=== PATIENT | male | born 1985 | race Caucasian/White ===

== ENCOUNTER 2017-08-08 19:50 | Inpatient (IN) | payer MEDICAID ==
[~2017-08-08] VITALS: Ht 170.2 cm; Wt 77.6 kg
[2017-08-08 19:55] VITALS: BP 147/114
[2017-08-08] MEDS ORDERED: BEN50 PO (20:00)
[2017-08-08] MEDS ORDERED: RANI150T15 PO (20:00)
--- NOTE | 2017-08-08 20:32 | NUR ---
PT TAKEN TO BED 8
--- NOTE | 2017-08-08 20:36 | NUR ---
PATIENT IS A 32 Y/O MALE WHO PRESENTS TO THE ED C/O ABD PAIN. PT STATES, "I WAS REFERRED FROM URGENT CARE TO COME TO ER BECAUSE THEY SAID I MIGHT HAVE APPENDICITIS." PT REPORTS 8/10 THROBBING LEFT UPPER QUADRANT ABD PAIN. PT DENIES CP, SOB, N/B/D. PT AAOX4, RR EVEN/UNLABORED. PT REPOSITIONED FOR COMFORT, BED IN LOWEST POSITION. ER MD DR. BOONE NOTIFIED. WILL CONTINUE TO MONITOR.
[2017-08-08] MEDS ORDERED: NACL 0.9% 1,000 ML IV ONE (21:07)
[2017-08-08] MEDS ORDERED: MORPHINE SULFATE 4 MG/ML SYR IVP ONE (21:10)
[2017-08-08] MEDS ORDERED: ONDANSETRON 4 MG/2 ML VIAL IVP ONE (21:10)
[2017-08-08 21:44] LABS: BASOPHILS # (AUTO) 0.3 K/uL (0.00-0.22); EOSINOPHILS # (AUTO) 0.1 K/uL (0-0.4); HEMATOCRIT 44.9 % (36-52); LYMPHOCYTES # (AUTO) 0.8 K/uL (2.0-11.5); MEAN CORPUSCULAR HEMOGLOBIN 31 pg (27-31); MEAN CORPUSCULAR HGB CONC 33 g/dL (33-37); MEAN CORPUSCULAR VOLUME 93 fL (80-94); MONOCYTES # (AUTO) 0.8 K/uL (0.8-1.0); NEUTROPHILS # (AUTO) 3.6 K/uL (1.8-7.7); PLATELET COUNT (AUTO) 160 K/uL (140-450); RED BLOOD CELL COUNT(AUTO) 4.82 MIL/uL (4.20-6.10); RED CELL DISTRIBUTION WIDTH 13.2 % (11.6-13.7); WHITE BLOOD COUNT (AUTO) 5.6 K/uL (4.8-10.8)
[2017-08-08 21:50] LABS: BARBITURATE, URINE NEG. ng/ml (NEG <=200); BENZODIAZEPINE, URINE NEG. ng/mL (NEG <=200); CANNABINOID, URINE NEG. ng/mL (NEG <=50); COCAINE, URINE NEG. ng/mL (NEG <=300); OPIATE, URINE NEG. ng/mL (NEG <=2000); PHENCYCLIDINE SCREEN,URINE NEG. ng/mL (NEG <=25)
[2017-08-08 21:51] LABS: ANION GAP 10.3 (8-16); CARBON DIOXIDE 32.3 mmol/L (21-32); CREATININE 1.1 mg/dL (0.7-1.3); POTASSIUM 3.6 mmol/L (3.5-5.1)
[2017-08-08 21:57] LABS: ALBUMIN 3.8 g/dL (3.4-5.0); TOTAL BILIRUBIN 0.7 mg/dL (0.0-1.0)
[2017-08-08] MEDS ORDERED: DICYCLOMINE HCL LIQUID 20 MG, ALUMINUM HYD/MAG/SIMETHICONE 30 ML, LIDOCAINE VISCOUS 2% ... PO ONE ×3 (22:05)
--- NOTE | 2017-08-08 22:05 | NUR ---
CAROLINE RIOS NOTIFIED OF [facility], NO AVAIL IN HOSP. ER MD DR. BOONE NOTIFIED.
[2017-08-08] MEDS ORDERED: LIDOCAINE VISCOUS 2% 20 ML UDC ONE (22:26)
[2017-08-08] MEDS ORDERED: ALUMINUM HYD/MAG/SIMETHICONE 30 ML UDC ONE (22:26)
--- NOTE | 2017-08-08 23:12 | NUR ---
PT TAKEN TO CT
--- NOTE | 2017-08-08 23:19 | NUR ---
PT RETURN FROM CT
[2017-08-09] MEDS ORDERED: ONDANSETRON 4 MG/2 ML VIAL IVP ONE (00:35)
[2017-08-09] MEDS ORDERED: fentaNYL 0.05 MG/ML VIAL IVP ONE (00:35)
[2017-08-09] MEDS ORDERED: ONDANSETRON 4 MG/2 ML VIAL IVP PRN (00:40)
[2017-08-09] MEDS ORDERED: ACETAMINOPHEN 325 MG TAB PO PRN (00:40)
[2017-08-09] MEDS ORDERED: HYDROmorphone 1 MG/ML AMP IM PRN (00:40)
--- NOTE | 2017-08-09 00:48 | NUR ---
PT TAKEN TO XRAY
--- NOTE | 2017-08-09 00:50 | NUR ---
PT RETURN FROM XRAY
--- NOTE | 2017-08-09 00:51 | NUR ---
Dr. White evaluating patient at bedside.
[2017-08-09 01:00] LABS: PROTHROMBIN TIME 10.4 secs (10.8-13.4)
[2017-08-09 01:02] LABS: APPEARANCE,URINE CLEAR (CLEAR); BILIRUBIN,URINE NEGATIVE (NEGATIVE); BLOOD, URINE NEGATIVE (NEGATIVE); COLOR,URINE YELLOW (YELLOW); LEUKOCYTE ESTERASE ,URINE NEGATIVE (NEGATIVE); NITRITE, URINE NEGATIVE (NEGATIVE); UGLUCOSE NEGATIVE (NEGATIVE)
[2017-08-09] MEDS: LORazepam 1 MG TAB PO SCH ×4 (01:05→20:19)
--- NOTE | 2017-08-09 01:13 | NUR ---
Patient noted to have existing wounds upon arrival to ER. Photos taken of wound and placed in chart. Wound covered with dressing. Physician informed. Addendum: 08/09/17 at 0334 by Xanic Patient noted to have existing abrasion on right arm upon arrival to ER. Photos taken of abrasion and placed in chart. Physician informed.
[2017-08-09 01:14] LABS: AMYLASE 65 U/L (25-115); CHOL/HDL RATIO 6.4 (1-4.5); FREE T4 (FREE THYROXINE) 0.98 ng/dL (0.76-1.46); HDL CHOLESTEROL 36 mg/dL (40-60); LDL (CALC) 141 mg/dL (60-100); MAGNESIUM 1.9 mg/dL (1.8-2.4); PHOSPHORUS 3.4 mg/dL (2.5-4.9); THYROID STIMULATING HORMONE 2.44 uIU/mL (0.34-3.74); TRIGLYCERIDES 276 mg/dL (30-150)
--- NOTE | 2017-08-09 01:15 | NUR ---
Patient will be admitted to care of CARM[facility]. Admited to TELE. Will go to room 11B. Belongings list completed. Report to HUSEYIN AMOS.
[2017-08-09 01:18] LABS: CALCIUM OXALATE CRYSTALS,UR >100 /HPF (None Seen); RBC,URINE 0-5 (RARE) /HPF (0-5); WBC,URINE 0-5 (RARE) /HPF (0-5)
--- NOTE | 2017-08-09 01:20 | NUR ---
PT ARRIVED TO UNIT VIA GURNEY ACCOMPANIED BY ER NURSE AND GOLF CLUB ASSEMBLER. PT IS A/OX4 ON ROOM AIR. PT SKIN IS INTACT. PT AMBULATED TO BED WITH STEADY GAIT, APPLIED TELE MONITOR, AND UPDATED BOARD. ORIENTED PT TO PHONE, ROOM, CALL LIGHT. PT IN STABLE CONDITION, NO SIGNS OF DISTRESS NOTED. BED IN LOW POSITION, CALL LIGHT WITHIN REACH. WILL CONTINUE TO MONITOR.
[2017-08-09 01:30] VITALS: BP 150/99
[2017-08-09] MEDS: NACL 0.9% 1,000 ML IV SCH ×3 (01:36→20:18)
[2017-08-09] MEDS: LORazepam 2 MG/ML VIAL IVP PRN ×2 (01:37→16:34)
[2017-08-09 04:00] VITALS: BP 127/95
[2017-08-09] MEDS ORDERED: LORazepam 1 MG TAB PO SCH (05:00)
[2017-08-09 06:45] LABS: BASOPHILS # (AUTO) 0.2 K/uL (0.00-0.22); BASOPHILS % (AUTO) 3.6 % (0.0-2.0); EOSINOPHILS # (AUTO) 0.1 K/uL (0-0.4); EOSINOPHILS % (AUTO) 1.2 % (0.0-4.0); HEMATOCRIT 42.5 % (36-52); HEMOGLOBIN 14.4 g/dL (12.0-18.0); LYMPHOCYTES % (AUTO) 18.9 % (20.5-51.1); MEAN CORPUSCULAR HEMOGLOBIN 32 pg (27-31); MEAN CORPUSCULAR HGB CONC 34 g/dL (33-37); MEAN CORPUSCULAR VOLUME 94 fL (80-94); MONOCYTES # (AUTO) 0.7 K/uL (0.8-1.0); MONOCYTES % (AUTO) 12.2 % (1.7-9.3); NEUTROPHILS # (AUTO) 3.5 K/uL (1.8-7.7); NEUTROPHILS % (AUTO) 64.1 % (42.2-75.2); PLATELET COUNT (AUTO) 138 K/uL (140-450); RED BLOOD CELL COUNT(AUTO) 4.51 MIL/uL (4.20-6.10); RED CELL DISTRIBUTION WIDTH 13.2 % (11.6-13.7); WHITE BLOOD COUNT (AUTO) 5.5 K/uL (4.8-10.8)
[2017-08-09 06:54] LABS: ANION GAP 9.5 (8-16); CARBON DIOXIDE 31.2 mmol/L (21-32); CREATININE 1.1 mg/dL (0.7-1.3); POTASSIUM 3.7 mmol/L (3.5-5.1)
[2017-08-09 07:04] LABS: MAGNESIUM 1.9 mg/dL (1.8-2.4); PHOSPHORUS 3.5 mg/dL (2.5-4.9)
--- NOTE | 2017-08-09 07:04 | NUR ---
ENDORSED PT TO DAY SHIFT RN FOR CONTINUITY OF CARE. PT IN STABLE CONDITION. ALSO ENDORSED ORDER TO OBTAIN HISTORY OF TREATMENT FOR H. PYLORI FROM [facility].
--- NOTE | 2017-08-09 07:10 | NUR ---
RECEIVED PT REPORT AT BEDSIDE FROM NIGHT NURSE. PT IS AAOX4 AND SHOWS NO S/S OF ACUTE DISTRESS ON ROOM AIR. PT STATES TOLERABLE ABD PAIN OF 3/10. SKIN IS INTACT. ON TELE MONITOR. NOTED R AC IV WITH IVF'S INFUSING WELL. PT WAS EXPLAINED POC FOR TODAY. PT VERBALIZED UNDERSTANDING. THE BED IS IN LOW POSITION WITH THE CALL LIGHT WITHIN REACH.
[2017-08-09 08:00] VITALS: BP 135/83
--- NOTE | 2017-08-09 08:53 | NUR ---
PATIENT HAS BEEN SCREENED AND CATEGORIZED MODERATE NUTRITION RISK. PATIENT WILL BE SEEN WITHIN 3-5 DAYS OF ADMISSION. 08/11/17-08/13/[address]
--- NOTE | 2017-08-09 09:08 | NUR ---
CM NOTE SPOKE WITH DORA OF [facility] PH# [phone]. PER DORA, PATIENT BELONGS TO [facility] AND THEY ARE FULL RISK AND THAT REVIEWS AND DISCHARGE NEEDS SHOULD ONLY BE SENT TO THEM FAX# [phone] PH# [phone]. INITIAL REVIEW FAXED TO [facility] [phone] PH# [phone].
[2017-08-09] MEDS: THIAMINE 100 MG TAB PO SCH (09:56)
[2017-08-09] MEDS: FOLIC ACID 1 MG TAB PO SCH (09:57)
[2017-08-09] MEDS: MULTIVITAMIN 1 TAB PO SCH (09:58)
[2017-08-09] MEDS: DOCUSATE SODIUM 100 MG GELCAP PO SCH ×2 (09:58→20:19)
[2017-08-09] MEDS: PANTOPRAZOLE 40 MG TABEC PO SCH ×2 (09:59→20:19)
[2017-08-09] MEDS: ATORVASTATIN 20 MG TAB PO SCH (10:00)
--- NOTE | 2017-08-09 10:00 | NUR ---
ADMINISTERED SCHEDULED MEDICATIONS. PT TOLERATED ACTIVITY WELL. PT IS AWARE OF CT WITH IV CONTRAST SCHEDULED FOR TODAY AND AGREES TO SIGN CONSENT.
--- NOTE | 2017-08-09 10:45 | NUR ---
PT LEFT UNIT FOR PROCEDURE IN STABLE CONDITION.
--- NOTE | 2017-08-09 11:00 | NUR ---
PT ARRIVED BACK ON UNIT. PT SHOWS NO S/S OF ACUTE DISTRESS ON ROOM AIR. BED IS IN LOW POSITION WITH CALL LIGHT WITHIN REACH.
[2017-08-09] MEDS: HYDROcodone/APAP 7.5/325 MG 1 TAB PO PRN ×3 (12:04→22:49)
[2017-08-09] MEDS: SENNA 8.6 MG TAB PO SCH ×2 (12:04→17:28)
--- NOTE | 2017-08-09 12:15 | NUR ---
PT IS BEING SEEN BY DR BAUGH AND IS EXPLAINING POC FOR LATER ON TODAY. A SCHEDULED US OF THE ABD IS DUE TO BE DONE AFTER PROCEDURE PT MAY HAVE SOMETHING TO EAT. FOR NOW PT CAN ONLY HAVE ICE CHIPS. PT WAS GIVEN NORCO 7.5/325 MG PO FOR 6/10 ABD PAIN AND SCHEDULED ATIVAN 1 MG PO. ALL NEEDS ARE MET AT THIS TIME. WILL CONTINUE TO MONITOR.
--- NOTE | 2017-08-09 13:15 | NUR ---
PT STATES 5/10 ABD PAIN AND STATES PAIN MEDICATIONS DID LOWER INTENSITY BUT NOT BY MUCH
--- NOTE | 2017-08-09 14:35 | NUR ---
PT STATES TOLERABLE ABD PAIN OF 4/10. ALL NEEDS MET AT THIS TIME WILL CONTINUE TO MONITOR.
[2017-08-09 16:00] VITALS: BP 135/101
--- NOTE | 2017-08-09 16:35 | NUR ---
PT C/O ANXIETY BC HE STATED, " THEY FOUND A MASS OR CYST ON MY LIVER". PT WAS ADMINISTERED ATIVAN 2 MG IVP. PT'S NEEDS MET AT THIS TIME WILL CONTINUE TO MONITOR.
--- NOTE | 2017-08-09 19:00 | NUR ---
GAVE PT REPORT AT BEDSIDE TO NIGHT NURSE. PT ENDORSED IN STABLE CONDITION.
--- NOTE | 2017-08-09 19:01 | NUR ---
PATIENT REPORT RECEIVED AT BEDSIDE FROM MORNING NURSE. PATIENT IS AWAKE, ALERT, AND ORIENTED. PATIENT'S MOTHER IS AT BEDSIDE. NO SIGNS AND SYMPTOMS OF DISTRESS NOTED. NO COMPLAINTS OF PAIN AT THIS TIME. IV SITE NOTED ON RIGHT AC, ASYMPTOMATIC, INTACT, AND PATENT. IVF INFUSING WELL. BED IN LOWEST POSITION, SIDE RAILS UP AND CALL LIGHT WITHIN REACH. WILL CONTINUE TO MONITOR.
[2017-08-09] MEDS: ZOLPIDEM 5 MG TAB PO SCH (21:02)
--- NOTE | 2017-08-09 21:33 | NUR ---
CHECKED ON PATIENT. PATIENT IS RESTING COMFORTABLY IN BED, WATCHING SHOWS ON HIS PHONE. NO SIGNS AND SYMPTOMS OF DISTRESS NOTED. BED IN LOWEST POSITION, SIDE RAILS UP AND CALL LIGHT WITHIN REACH. WILL CONTINUE TO MONITOR.
[2017-08-10] VITALS (7 sets, daily range): BP systolic 126–146; BP diastolic 83–95
--- NOTE | 2017-08-10 02:32 | NUR ---
CHECKED ON PATIENT. PATIENT IS ASLEEP, NO SIGNS AND SYMPTOMS OF DISTRESS NOTED. BREATHING EVEN AND UNLABORED. BED IS IN LOWEST POSITION, SIDE RAILS UP AND CALL LIGHT WITHIN REACH. WILL CONTINUE TO MONITOR.
[2017-08-10] MEDS: LORazepam 2 MG/ML VIAL IVP PRN (03:02)
[2017-08-10] MEDS: NACL 0.9% 1,000 ML IV SCH ×3 (04:59→22:45)
[2017-08-10] MEDS: LORazepam 1 MG TAB PO SCH ×3 (05:17→21:00)
[2017-08-10 06:42] LABS: BASOPHILS # (AUTO) 0.2 K/uL (0.00-0.22); BASOPHILS % (AUTO) 3.1 % (0.0-2.0); EOSINOPHILS # (AUTO) 0.1 K/uL (0-0.4); EOSINOPHILS % (AUTO) 1.6 % (0.0-4.0); HEMATOCRIT 42.5 % (36-52); HEMOGLOBIN 14.4 g/dL (12.0-18.0); LYMPHOCYTES # (AUTO) 0.6 K/uL (2.0-11.5); LYMPHOCYTES % (AUTO) 13.4 % (20.5-51.1); MEAN CORPUSCULAR HEMOGLOBIN 32 pg (27-31); MEAN CORPUSCULAR HGB CONC 34 g/dL (33-37); MEAN CORPUSCULAR VOLUME 94 fL (80-94); MONOCYTES # (AUTO) 0.6 K/uL (0.8-1.0); MONOCYTES % (AUTO) 11.7 % (1.7-9.3); NEUTROPHILS # (AUTO) 3.3 K/uL (1.8-7.7); NEUTROPHILS % (AUTO) 70.2 % (42.2-75.2); PLATELET COUNT (AUTO) 139 K/uL (140-450); RED BLOOD CELL COUNT(AUTO) 4.51 MIL/uL (4.20-6.10); RED CELL DISTRIBUTION WIDTH 13.3 % (11.6-13.7); WHITE BLOOD COUNT (AUTO) 4.8 K/uL (4.8-10.8)
[2017-08-10 06:57] LABS: ANION GAP 10.7 (8-16); CARBON DIOXIDE 28.2 mmol/L (21-32); CREATININE 0.9 mg/dL (0.7-1.3); POTASSIUM 3.9 mmol/L (3.5-5.1)
[2017-08-10 07:09] LABS: MAGNESIUM 1.9 mg/dL (1.8-2.4)
--- NOTE | 2017-08-10 07:18 | NUR ---
PATIENT REPORT GIVEN TO MORNING NURSE. PATIENT IS IN STABLE CONDITION
--- NOTE | 2017-08-10 07:19 | NUR ---
PATIENT LYING IN BED COMFORTABLY. NO DISTRESS NOTED. DENIES ANY PAIN AT THIS TIME. RESPIRATIONS EVEN, UNLABORED, ON ROOM AIR. AAOX4, CALM, COOPERATIVE, SKIN COLOR APPROPRIATE TO ETHNICITY, WARM TO TOUCH. SKIN IS INTACT. IV SITE INTACT, PATENT, AND INFUSING IV FLUIDS. LUNGS CTA ON ALL LOBES. ABDOMEN SOFT, NON-DISTENDED. PLAN OF CARE REVIEWED WITH PATIENT, PATIENT VERBALIZED UNDERSTANDING. SAFETY MEASURES IN PLACE, CALL LIGHT WITHIN REACH, BED RAILS UPX2. WILL CONTINUE TO MONITOR.
[2017-08-10] MEDS: FOLIC ACID 1 MG TAB PO SCH (09:05)
[2017-08-10] MEDS: DOCUSATE SODIUM 100 MG GELCAP PO SCH ×2 (09:05→21:00)
[2017-08-10] MEDS: MULTIVITAMIN 1 TAB PO SCH (09:06)
[2017-08-10] MEDS: SENNA 8.6 MG TAB PO SCH ×3 (09:06→16:04)
[2017-08-10] MEDS: ATORVASTATIN 20 MG TAB PO SCH (09:06)
[2017-08-10] MEDS: THIAMINE 100 MG TAB PO SCH (09:06)
[2017-08-10] MEDS: PANTOPRAZOLE 40 MG TABEC PO SCH ×2 (09:06→21:01)
[2017-08-10] MEDS: HYDROcodone/APAP 7.5/325 MG 1 TAB PO PRN (09:12)
--- NOTE | 2017-08-10 09:15 | NUR ---
PATIENT SITTING IN BED COMFORTABLY WATCHING TV. NO DISTRESS NOTED. COMPLAINTS OF PAIN IN LEFT UPPER ABD. WILL MEDICATE WITH NORCO. MEDICATIONS DUE GIVEN. RESPIRATIONS EVEN, UNLABORED, ROOM AIR. IV PATENT, INTACT, AND INFUSING. SAFETY MEASURES IN PLACE. WILL CONTINUE TO MONITOR.
--- NOTE | 2017-08-10 10:13 | NUR ---
CM NOTE RECEIVED FAX FROM [facility] ZAR[facility] REQUESTING FOR CLINICAL REVIEWS. SPOKE WITH JD BOATENG RN PH# [phone] EXT [phone] AND SHE SAID [facility] IS ALSO AT RISK AND THAT REVIEWS SHOULD ALSO BE SENT TO [facility]. CONCURRENT REVIEW FAXED TO JD ZARATE [phone] PH# [phone] [facility] [place] AMOS EXT [phone] AND TO [facility] [phone] PH# [phone].
[2017-08-10] MEDS ORDERED: diphenhydrAMINE 50 MG/ML VIAL ONE (10:22)
[2017-08-10] MEDS ORDERED: fentaNYL 0.05 MG/ML VIAL ONE ×2 (10:22→12:39)
[2017-08-10] MEDS ORDERED: MIDAZOLAM 2 MG/2 ML VIAL ONE ×3 (10:22→12:40)
--- NOTE | 2017-08-10 10:30 | NUR ---
RADIOLOGY TOOK PATIENT FOR EGD VIA BED. CONSENTS ALREADY SIGNED BY PATIENT. WILL CONTINUE TO MONITOR WHEN PATIENT COMES BACK TO FLOOR.
[2017-08-10] MEDS: MIDAZOLAM 2 MG/2 ML VIAL IVP ONE ×2 (11:12→11:51)
[2017-08-10] MEDS: fentaNYL 0.05 MG/ML VIAL IVP ONE ×2 (11:13→11:50)
--- NOTE | 2017-08-10 11:30 | NUR ---
PATIENT BACK TO [facility] FLOOR VIA BED FROM RADIOLOGY. IN STABLE CONDITION. NO DISTRESS NOTED. RESPIRATIONS EVEN, UNLABORED, ON ROOM AIR. IV FLUIDS RECONNECTED PER MD ORDERS. SKIN IS INTACT. AAOX4, CALM, COOPERATIVE. DENIES ANY PAIN AT THIS TIME. SAFETY MEASURES IN PLACE, CALL LIGHT WITHIN REACH. WILL CONTINUE TO MONITOR.
--- NOTE | 2017-08-10 12:00 | NUR ---
PATIENT LYING IN BED WATCHING TV. NO DISTRESS NOTED. EXPLAINED CT RIGHT LIVER BIOPSY PROCEDURE TO PATIENT EXPECTED TO BE DONE AT 1300 AND OBTAINED SIGNATURE FOR CONSENT. ANSWERED ANY QUESTIONS THE PATIENT HAD REGARDING PROCEDURE. PATIENT VERBALIZED UNDERSTANDING. SAFETY MEASURES IN PLACE, CALL LIGHT WITHIN REACH. WILL CONTINUE TO MONITOR.
--- NOTE | 2017-08-10 12:45 | NUR ---
RADIOLOGY ON UNIT TO ARC WELDER APPRENTICE PATIENT FOR CT BIOPSY OF RIGHT LOBE OF LIVER. TICKET TO RIDE GIVEN TO RADIOLOGY PERSONNEL. IV FLUID DISCONNECTED. PATIENT IN STABLE CONDITION, ABLE TO AMBULATE WITH STEADY GAIT. NO DISTRESS NOTED. PATIENT TAKEN TO RADIOLOGY VIA WHEELCHAIR. WILL CONTINUE TO MONITOR ONCE PATIENT RETURNS TO UNIT.
--- NOTE | 2017-08-10 13:45 | NUR ---
PATIENT RETURNED TO [facility] UNIT AND BACK TO BED VIA WHEELCHAIR. IN STABLE CONDITION. NO DISTRESS NOTED. V/S STABLE, WILL CONTINUE TO TAKE V/S EVERY 15 MIN FOR 1 HR PER PROTOCOL. RESPIRATIONS EVEN, UNLABORED, ON ROOM AIR. PATIENT RETURNED WITH 3 SMALL INCISION WOUNDS ON RIGHT UPPER ABD COVERED WITH BANDAID. NO FURTHER BLEEDING. IV INTACT, PATENT, AND IVF RUNNING. SAFETY MEASURES IN PLACE, CALL LIGHT WITHIN REACH. WILL CONTINUE TO MONITOR.
[2017-08-10] MEDS ORDERED: DULoxetine 30 MG CAPDR PO SCH (15:29)
--- NOTE | 2017-08-10 16:00 | NUR ---
PATIENT SITTING IN BED WATCHING TV. NO DISTRESS NOTED. CONDITION UNCHANGED. DENIES ANY PAIN. MEDICATIONS DUE GIVEN. SAFETY MEASURES IN PLACE, CALL LIGHT WITHIN REACH. WILL CONTINUE TO MONITOR.
--- NOTE | 2017-08-10 17:28 | NUR ---
PATIENT REPORTS IV PUMP BEEPING. NO DISTRESS NOTED. DENIES ANY PAIN. LEFT AC IV SITE UNABLE TO FLUSH. USING ASEPTIC TECHNIQUE, REMOVED LEFT AC IV WITH MINIMAL BLOOD AND LUMEN COMPLETELY INTACT. STARTED NEW IV LINE ON LEFT HAND USING ASEPTIC TECHNIQUE AND 22G METZ NEEDLE ON FIRST ATTEMPT. PATIENT TOLERATED PROCEDURES WELL. SAFETY MEASURES IN PLACE, CALL LIGHT WITHIN REACH. WILL CONTINUE TO MONITOR.
--- NOTE | 2017-08-10 18:13 | NUR ---
PATIENT IS SITTING IN BED WATCHING TV COMFORTABLY. NO DISTRESS NOTED. DENIES ANY PAIN. CONDITION UNCHANGED. SAFETY MEASURES IN PLACE, CALL LIGHT WITHIN REACH. WILL CONTINUE TO MONITOR.
--- NOTE | 2017-08-10 19:20 | NUR ---
GAVE REPORT TO DAIRY CATTLE FARM WORKER NURSE FOR CONTINUITY OF CARE. PATIENT IN STABLE CONDITION.
--- NOTE | 2017-08-10 19:21 | NUR ---
RECD. RESTING IN BED, AWAKE, A/OX4. RESPIRATION EVEN AND UNLABORED. IV OF NS AT 120 ML/HR INFUSING, LEFT HAND G22. CONVERSING WITH MOTHER AT THE BEDSIDE. PLAN OF CARE FOR THE SHIFT DISCUSSED. VERBALIZED UNDERSTANDING. DENIES PAIN 0/10.
--- NOTE | 2017-08-10 19:21 | NUR ---
Patient's Plan of Care was discussed and reviewed with WIRER HELPER: LAURIE NINA
--- NOTE | 2017-08-10 20:00 | NUR ---
STANDING NEAR BED, STATED HAD ACCIDENT IN BED, TOOK OFF ALL HIS BEDDINGS. PRINCIPAL SYSTEMS ENGINEER CAME AND FIXED THE BED. WENT TO GO SHOWER.
--- NOTE | 2017-08-10 20:30 | NUR ---
BACK FROM SHOWER, BACK TO BED, USED HIS CELLPHONE TO CONVERSE WITH SOMEBODY.
[2017-08-10] MEDS: ZOLPIDEM 5 MG TAB PO SCH (21:01)
[2017-08-11] VITALS: BP 134/81
[2017-08-11 02:34] VITALS: BP 145/90
[2017-08-11] MEDS: LORazepam 2 MG/ML VIAL IVP PRN (02:36)
--- NOTE | 2017-08-11 02:36 | NUR ---
WITH ANXIETY, MEDICATED WITH ATIVAN 2 MG. IVP BY DANDRE LAMB. VS STABLE
--- NOTE | 2017-08-11 03:06 | NUR ---
NO ANXIETY NOTED, SLEEPING COMFORTABLY IN BED.
[2017-08-11] MEDS: LORazepam 1 MG TAB PO SCH (05:00)
[2017-08-11 06:49] LABS: BASOPHILS # (AUTO) 0.1 K/uL (0.00-0.22); BASOPHILS % (AUTO) 1.5 % (0.0-2.0); EOSINOPHILS # (AUTO) 0.1 K/uL (0-0.4); HEMATOCRIT 44.7 % (36-52); LYMPHOCYTES # (AUTO) 0.7 K/uL (2.0-11.5); LYMPHOCYTES % (AUTO) 11.1 % (20.5-51.1); MEAN CORPUSCULAR HEMOGLOBIN 32 pg (27-31); MEAN CORPUSCULAR HGB CONC 34 g/dL (33-37); MEAN CORPUSCULAR VOLUME 94 fL (80-94); MONOCYTES # (AUTO) 0.7 K/uL (0.8-1.0); MONOCYTES % (AUTO) 11.2 % (1.7-9.3); NEUTROPHILS # (AUTO) 4.4 K/uL (1.8-7.7); NEUTROPHILS % (AUTO) 75.2 % (42.2-75.2); PLATELET COUNT (AUTO) 155 K/uL (140-450); RED BLOOD CELL COUNT(AUTO) 4.75 MIL/uL (4.20-6.10); RED CELL DISTRIBUTION WIDTH 13.1 % (11.6-13.7)
[2017-08-11 07:12] LABS: ANION GAP 11.5 (8-16); CARBON DIOXIDE 27.2 mmol/L (21-32); CREATININE 0.9 mg/dL (0.7-1.3); POTASSIUM 3.7 mmol/L (3.5-5.1)
--- NOTE | 2017-08-11 07:20 | NUR ---
ENDORSED TO AM NURSE FOR CONTINUITY OF CARE.
--- NOTE | 2017-08-11 07:21 | NUR ---
RECEIVED REPORT FROM BOILERMAKER'S ASSISTANT NURSE MAXWELL AT BEDSIDE FOR CONTINUITY OF CARE. PT IS AWAKE AND ORIENTED. INTRODUCED SELF AND UPDATED BOARD. PT IN STABLE CONDITION.
[2017-08-11 08:00] VITALS: BP 149/96
[2017-08-11] MEDS ORDERED: ATOR20TA40 PO (08:22)
[2017-08-11] MEDS ORDERED: DOCU-299 PO (08:22)
[2017-08-11] MEDS ORDERED: ZOLP5TAB1 PO (08:22)
[2017-08-11] MEDS ORDERED: DULO30EC PO (08:22)
[2017-08-11] MEDS ORDERED: PANT40EC28 PO (08:22)
[2017-08-11] MEDS ORDERED: DULoxetine 30 MG CAPDR PO SCH (09:00)
[2017-08-11] MEDS: SENNA 8.6 MG TAB PO SCH (09:00)
[2017-08-11] MEDS: DOCUSATE SODIUM 100 MG GELCAP PO SCH (09:00)
[2017-08-11] MEDS: ATORVASTATIN 20 MG TAB PO SCH (09:02)
[2017-08-11] MEDS: THIAMINE 100 MG TAB PO SCH (09:02)
[2017-08-11] MEDS: PANTOPRAZOLE 40 MG TABEC PO SCH (09:02)
[2017-08-11] MEDS: FOLIC ACID 1 MG TAB PO SCH (09:02)
[2017-08-11] MEDS: MULTIVITAMIN 1 TAB PO SCH (09:02)
--- NOTE | 2017-08-11 09:06 | NUR ---
ADMINISTERED MORNING MEDS. NON-ADMIN COLACE AND SENNA DUE TO PT STATED HE HAD DIARRHEA AND REFUSED MED. PT TOLERATED ALL MEDS GIVEN. DR. ANTONIO AND RESIDENTS CAME IN AND SAW PT. SPOKE ABOUT D/C TODAY. PT AWARE OF D/C, ALREADY CHANGED INTO OWN CLOTHES. TOLD PT TO WAIT FOR D/C INSTRUCTIONS AND FORMS TO SIGN BEFORE HE CAN LEAVE. PT VERBALIZED UNDERSTANDING. NO SIGNS OF DISTRESS. CALL LIGHT WITHIN REACH. WILL CONTINUE TO MONITOR.
--- NOTE | 2017-08-11 10:11 | NUR ---
CM NOTE CONCURRENT REVIEW FAXED TO JD ZARATE [phone] PH# [phone] PRINC[facility] KILO AMOS EXT [phone] AND TO [facility] [phone] PH# [phone].
[2017-08-11] MEDS ORDERED: INFLUENZA VIRUS VACCINE QUAD 0.5 ML SYR IMVAC SCH (10:25)
--- NOTE | 2017-08-11 11:30 | NUR ---
PT D/C'S TO GO HOME. ADMINISTERED FLU VACCINE IM TO RIGHT DELTOID. PT TOLERATED WELL. GAVE D/C FORMS, INSTRUCTIONS AND RX TO PT. PROVIDED MEDICATION USE AND SIDE EFFECT TEACHING. PT VERBALIZED UNDERSTANDING. REMOVED IV CATHETER FROM LEFT HAND 22G. APPLIED DRESSING AND PRESSURE TO SITE. NO BLEEDING NOTED. REMOVED ID BANDS. PT LEFT WITH ALL PERSONAL BELONGINGS. WALKED WITH PT OUT OF HOSPITAL. PT LEFT IN STABLE CONDITION.
== END 2017-08-11 11:30 | disposition home or self-care (01) | DRG 241 ==
LOC: MED 19:50 → MTU 08-09 00:43
PROVIDERS: ADMIT Family Medicine; ATTEND Family Medicine
PROC: 0FB13ZX Excision of Right Lobe Liver, Percutaneous Approach, Diagnostic (ICD-10-PCS; principal; 2017-08-10 10:30)
PROC: 0DB68ZX Excision of Stomach, Via Natural or Artificial Opening Endoscopic, Diagnostic (ICD-10-PCS; 2017-08-11)
PROC: 3E0234Z Introduction of Serum, Toxoid and Vaccine into Muscle, Percutaneous Approach (ICD-10-PCS; 2017-08-11)
DX: K29.70 Gastritis, unspecified, without bleeding (principal); N17.0 Acute kidney failure with tubular necrosis; K76.0 Fatty (change of) liver, not elsewhere classified; E86.0 Dehydration; F10.10 Alcohol abuse, uncomplicated; F41.9 Anxiety disorder, unspecified; G47.00 Insomnia, unspecified; Z88.8 Allergy status to other drugs, medicaments and biological substances; R82.4 Acetonuria; K44.9 Diaphragmatic hernia without obstruction or gangrene; K21.9 Gastro-esophageal reflux disease without esophagitis; Z79.899 Other long term (current) drug therapy; Z86.19 Personal history of other infectious and parasitic diseases; E78.2 Mixed hyperlipidemia; Q64.4 Malformation of urachus; Z23 Encounter for immunization
CPT/HCPCS: 36415; 47000; 71010; 76705; 80048; 80053; 80305; 81001; 82150; 82378; 83036; 83690; 83735; 84100; 84439; 84443; 84484; 85025; 85610; 85730; 86677; 87081; 90658; 93005; 96361; 96374; 96375; 99285; G0482; J1200; J2001; J2060; J2250; J2270; J2405; J3010; J7030; Q0092; Q9967

== ENCOUNTER 2017-11-14 12:34 | Emergency (ER) | payer SELFPAY ==
[~2017-11-14 12:34] MED LIST: ATOR20TA40 PO; DOCU-299 PO; DULO30EC PO; PANT40EC28 PO; ZOLP5TAB1 PO
--- NOTE | 2017-11-14 13:12 | NUR ---
CALLED X2 AT THE [facility] NO ANSWER; LWESTRELLA
== END 2017-11-14 13:12 | disposition left against medical advice (07) ==
LOC: MED 12:34
DX: Z53.21 Procedure and treatment not carried out due to patient leaving prior to being seen by health care provider (principal)